=== PATIENT | female | born 1960 | race Hispanic/Latino ===

== ENCOUNTER → 2018-11-03 | Day surgery (SDC) | payer BC ==
[~2018-11-03] MED LIST: ASPIR 8181 MG PO; BUPROPION XL150 MG PO; FENTANYL CITRATE/PF 100MCG/2 ML INJ ONE; GARLIC PO; HUMALOG100 UNIT/3 SC; INSULIN REGULAR, HUMAN 100 UNIT/1 ML 3ML VIAL ONE; INVOKANA PO; LANSOPRAZOLE15 MG PO; LANTUS SQ; LIDOCAINE HCL 2% LOCAL INJ 5 ML SDV VIAL INJ ONE; LISINOPRIL10 MG PO; LORTAB 10-5001 EACH PO; METFORMIN HCL500 MG PO; METOCLOPRAMIDE HCL 10 MG/2ML VIAL ONE; MIDAZOLAM HCL 2 MG/2 ML VIAL ONE; ONDANSETRON HCL INJ 2MG/ML 2ML 2 MG/ML VIAL ONE; PANTOPRAZOLE 40 MG 10ML VIAL ONE; PRAVASTATIN SOD40 MG PO; PROPOFOL IV EMULSION 10 MG/ML 50 ML VIAL ONE; SPIRONOLACTONE25 MG PO; SYNTHROID88 MCG PO; VICTOZA PO; VIT D PO; WELLBUTRIN SR150 MG PO; XULTOPHY SC
--- NOTE | 2018-11-03 23:24 | Operative Report ---
DATE OF PROCEDURE: 11/03/2018 SURGEON: Regino Lopez MD PROCEDURE: EGD with biopsies. INDICATIONS FOR PROCEDURE: Upper abdominal pain. MEDICATION: The patient was done under MAC, please see anesthesiologist's note. PROCEDURE IN DETAIL: With the patient in left lateral decubitus position, a flexible fiberoptic Olympus gastroscope was introduced into the esophagus under direct visualization without any difficulty. There was some patchy erythema noted in distal esophagus. Minute tongues of velvety red mucosa were noted to extend proximally from the GE junction and biopsies were obtained to rule out Jimenez's. The scope was then advanced with ease into the stomach traversing a small sliding hiatal hernia. Mucosa overlying the antrum and the body revealed some patchy erythema and low-grade edema, and biopsies were obtained and sent to stain for H pylori. The pylorus was of normal contour and shape. It was intubated with ease and the scope was advanced all the way to the second portion of the duodenum. Biopsies were obtained from the proximal second portion and the duodenal bulb to rule out sprue. The scope was then withdrawn back into the stomach and retroflexed. Mucosa overlying the fundus and the cardia appeared to be within normal limits. The scope was then straightened out and was subsequently withdrawn. The patient tolerated the procedure well. IMPRESSION: 1. Mild distal esophagitis. 2. Rule out Jimenez esophagus. 3. Small sliding hiatal hernia. 4. Gastritis, biopsied. Biopsies were sent to stain for Helicobacter pylori. 5. Rule out sprue. PLAN: Follow up histology. Initiate Dexilant 60 mg 1 p.o. q.a.m. before meals. Regino Lopez MD [facility] /[id number] cc: Willem Wheatley MD
--- OUTSIDE RECORDS SUMMARY | 2018-11-05 11:00 | XMS REPORT ---
Author [facility] Address Unknown Phone Unavailable Care Team Providers Care Finish Sander Name Role Phone Unavailable Unavailable Payers Payer Name Policy Type Policy Number Effective Date Expiration Date Problems This patient has no known problems. Allergies, Adverse Reactions, Alerts Allergy Name Allergy Type Status Severity Reaction(s) Onset Date Inactive Date Treating Clinician Comments banana DA Active [place] 2018-09-22 00:00:00 avocado DA Active [place] 2018-09-22 00:00:00 orange flavor DA Active [place] 2018-09-22 00:00:00 banana DA Active TN 2013-05-27 00:00:00 avocado DA Active TN 2013-05-27 00:00:00 orange flavor DA Active [place] 2013-05-27 00:00:00 Medications This patient has no known medications. Results Test Description Test Time Test Comments Text Results Atomic Results Result Comments - XR SHOULDER 2 + V LT 2018-10-15 16:40:00 FAX: Dakota Everett MD [phone] [place]: [address] St: PRE FAX: Willem Garza MD [phone] Name: JACLYN FELDMAN [facility] : 1960 Age/S: 58/F [address] Unit #: [id number] Loc: [place] [address] Phys: Dakota Everett MD Acct: [id number] Dis Date: Status: PRE ER PHONE #: [phone] Exam Date: 10/15/2018 1630 FAX #: [phone] Reason: SHOULDER PAIN EXAMS: CPT CODE: [id number] XR SHOULDER 2 + [place] LT [id number] REASON FOR EXAM: ARM PAIN EXAM ORDER DATE: 10/15/2018 4:13 PM Ordering M.DGiovany: Dakota Everett MD PROCEDURE: - XR HUMERUS 2 + V LT, - XR SHOULDER 2 + V LT FINDINGS: 5 views of the left humerus and shoulder were obtained. A comminuted fracture of the left proximal humerus noted. There is normal alignment of the humeral head to the glenoid fossa. The acromioclavicular joint is intact IMPRESSION: Minimally displaced comminuted fracture of the surgical neck of the left humerus at 1640 Reported and signed by: Zachariah Melo M.D. CC: Dakota Everett MD; Willem Wheatley Technologist: RT Castro(R; ... Trnscrd Date/Time/By: 10/15/2018 (1640) : By: AndresL Orig Print D/T: S: 10/15/2018 (3049) PAGE 1 Signed Report - XR HUMERUS 2 + V LT 2018-10-15 16:40:00 FAX: Dakota Everett MD [phone] [place]: B St: PRE FAX: Willem Garza MD [phone] Name: JACLYN FELDMAN [facility] : 1960 Age/S: 58/F [address] [facility] Unit #: [id number] Loc: [place] [address] Phys: Dakota Everett MD Acct: [id number] Dis Date: Status: PRE ER PHONE #: [phone] Exam Date: 10/15/2018 1630 FAX #: [phone] Reason: ARM PAIN EXAMS: CPT CODE: [id number] XR HUMERUS 2 + [place] [id number] REASON FOR EXAM: ARM PAIN EXAM ORDER DATE: 10/15/2018 4:13 PM Ordering M.DGiovany: Dakota Everett MD PROCEDURE: - XR HUMERUS 2 + V LT, - XR SHOULDER 2 + V LT FINDINGS: 5 views of the left humerus and shoulder were obtained. A comminuted fracture of the left proximal humerus noted. There is normal alignment of the humeral head to the glenoid fossa. The acromioclavicular joint is intact IMPRESSION: Minimally displaced comminuted fracture of the surgical neck of the left humerus at 1640 Reported and signed by: Zachariah Melo M.D. CC: Dakota Everett MD; Willem Wheatley Technologist: LAWANDA ErazoR; ... Trnscrd Date/Time/By: 10/15/2018 (1640) : By: AndresL Orig Print D/T: S: 10/15/2018 (3669) PAGE 1 Signed Report BREAST ULTRASOUND CORE BIOPSY RIGHT 2018-10-01 15:35:45 - BREAST ULTRASOUND CORE BIOPSY RIGHTULTRASOUND GUIDED BIOPSY RIGHT BREAST WITH MARKING DEVICE INSERTED: 09/27/2018CLINICAL: Ultrasound biopsy, right breast. Comparison is made to exams dated 09/11/2018 ultrasound, 08/17/2018 mammogram, 09/10/2008 ultrasound, and 09/10/2008 mammogram - [facility]-. An ultrasound guided biopsy using real-time ultrasound was performed for the circumscribed o mckay mass located in the right breast at 1 o'clock, posterior depth. This was described on the previous mammography and ultrasound reports. The skin was prepped in the usual manner. Local anesthetic was administered to the access site. The abnormality was approached from the medial aspect. A biopsy needle was placed adjacent to the abnormality under ultrasound guidance. Once the needle was documented to be in the correct location, a specimen was obtained using a BARD biopsy device. A clip was inserted into the biopsy cavity. The specimen was sent to the laboratory for pathological analysis. IMPRESSION: ULTRASOUND GUIDED BIOPSYUltrasound guided biopsy of the mass in the right breast at 1 o'clock, posterior depth, was successful with no apparent post procedure complications. Waiting for pathology results. A final report will be issued when these become available. FINAL PATHOLOGY:Fibroadenoma.RECOMMENDATION:Benign biopsy, concordant. Normal interval follow-up in 1 year is recommended for screening mammography.Cuco Lyons M.D. ss/:10/01/2018 15:35:45 Supervisor [employer]: Cris BELL, [facility]-FWletter sent: Benign Biopsy DIAG MAMM RIGHT CAD DIGITAL 2018-09-27 09:39:45 - DIAG MAMM RIGHT CAD DIGITALUNILATERAL RIGHT DIGITAL DIAGNOSTIC MAMMOGRAM WITH CAD POST-PROCEDURE IMAGING FOR MARKER PLACEMENT: 09/27/2018CLINICAL: Post clip placement. Current mammographic images were evaluated by either a [employer]-Vu or a Kontroncker CAD (computer aided detection system). Comparison is made to exams dated 08/17/2018 mammogram and 09/10/2008 mammogram - [facility]. The tissue of the right breast is heterogenously dense, which lowers the sensitivity of mammography. Procedure mammogram demonstrates biopsy marker clip within the biopsied right breast mass at 1 o'clock, 8 cm from the nipple.IMPRESSION: POST PROCEDURE IMAGING FOR MARKER PLACEMENTSuccesful biopsy marker placement within the biopsied right breast mass.Cuco Lyons M.D. ss/:09/27/2018 09:39:45 Supervisor [employer]: Janae BELL, [facility]- FWMammogram BI-RADS: Post-procedure mammogram for marker placement GLUBED 2018-09-23 11:37:00 GLUBED (test code=GLUBED) 244 mg/dL 74-106 Performed by certified resizer operator at [facility] [id number] 07:37:00* Test Item Value Reference Range Comments GLUBED (test code=GLUBED) 184 mg/dL 74-106 Performed by certified resizer operator at [facility] BASIC METABOLIC [id number] 05:20:00* Test Item Value Reference Range Comments SODIUM (test code=NA) 139 mmol/L 136-145 POTASSIUM (test code=K) 3.6 mmol/L 3.5-5.1 CHLORIDE (test code=CL) 104.0 mmol/L 98-107 CARBON DIOXIDE (test code=CO2) 28.0 mmol/L 21-32 ANION GAP (test code=GAP) 10.6 10-20 GLUCOSE (test code=GLU) 222 mg/dL 74-106 BLOOD UREA NITROGEN (test code=BUN) 20 mg/dL 7-18 GLOMERULAR FILTRATION RATE (test code=GFR) > 60 mL/min >=60 Estimated GFR by using Modified MDRD formula.Chronic kidney disease is defined as either kidney damageor GFR <60 mL/min/1.73 m2 for >3 months. CREATININE (test code=CREAT) 0.50 mg/dL 0.55-1.02 Note change in reference range due to change in reagent. BUN/CREATININE RATIO (test code=BUN/CREA) 37.1 10-20 CALCIUM (test code=CA) 8.5 mg/dL 8.5-10.1 LIPID PROFILE (CORONARY RISK)2018-09-23 05:20:00* Test Item Value Reference Range Comments TRIGLYCERIDES (test code=TRIG) 238 mg/dL 20-150 CHOLESTEROL (test code=CHOL) 172 mg/dL 0-200 CHOLESTEROL/HDL RATIO (test code=CHOLHDL) 4.0 RATIO 0-4.9 RISK ASSOCIATED WITH CHOL/HDL RATIOS: Risk Male Female1/2 AVERAGE 3.43 3.27AVERAGE 4.97 4.442X AVERAGE 9.55 7.053X AVERAGE 23.39 11.04 REFERENCE VALUE IS RELATED TO RISK LEVELS ASRECOMMENDED BY THE ROSAR[facility]. HEART, LUNG, AND BLOOD INST. HDL CHOLESTEROL (test code=HDL) 37 mg/dL 40-60 LIPOPROTEIN LDL (test code=LDL) 109 mg/dL 100-129 RN PERSONNEL, CONTACT PHYSICIAN IMMEDIATELY IF THIS IS A STROKE, AMI OR CAROTID STENOSIS PATIENT WHEN THE LDL >100 (1ST OCCURENCE, THIS ADMISSION) Reference Interval: mg/dL mmol/L Optimal <100 <2.6Near/above optimal 100-129 2.6- 3.3Borderline High 130-159 3.4-4.1High 160-189 4.1-4.9Very High >=190 >=4.9=========This LDL result is a direct measurement.========= [id number] 05:20:00* Test Item Value Reference Range Comments MAGNESIUM (test code=MAG) 2.1 mg/dL 1.8-2.4 [id number] 05:17:00* Test Item Value Reference Range Comments GLYCOSYLATED HEMOGLOBIN (HA1C) (test code=GLYHGB) 11.1 % HbA1 4.8-6.0 ESTIMATED AVERAGE GLUCOSE (test code=EAG) 272 MG/DL BASIC METABOLIC [id number] 05:13:00* Test Item Value Reference Range Comments SODIUM (test code=NA) 139 mmol/L 136-145 POTASSIUM (test code=K) 3.6 mmol/L 3.5-5.1 CHLORIDE (test code=CL) 104.0 mmol/L 98-107 CARBON DIOXIDE (test code=CO2) mmol/L 21-32 ANION GAP (test code=GAP) 10-20 GLUCOSE (test code=GLU) mg/dL 74-106 BLOOD UREA NITROGEN (test code=BUN) mg/dL 7-18 GLOMERULAR FILTRATION RATE (test code=GFR) mL/min >=60 CREATININE (test code=CREAT) mg/dL 0.55-1.02 BUN/CREATININE RATIO (test code=BUN/CREA) 10-20 CALCIUM (test code=CA) mg/dL 8.5-10.1 LIPID PROFILE (CORONARY RISK)2018-09-23 05:13:00* Test Item Value Reference Range Comments TRIGLYCERIDES (test code=TRIG) mg/dL 20-150 CHOLESTEROL (test code=CHOL) mg/dL 0-200 CHOLESTEROL/HDL RATIO (test code=CHOLHDL) RATIO 0-4.9 HDL CHOLESTEROL (test code=HDL) mg/dL 40-60 LIPOPROTEIN LDL (test code=LDL) mg/dL 100-129 [id number] 05:13:00* Test Item Value Reference Range Comments MAGNESIUM (test code=MAG) mg/dL 1.8-2.4 CBC W/AUTO [id number] 04:51:00* Test Item Value Reference Range Comments WHITE BLOOD CELL (test code=WBC) 8.0 K/mm3 4.5-12.5 RED BLOOD CELL (test code=RBC) 4.19 mill/mm3 3.7-5.2 HEMOGLOBIN (test code=HGB) 12.4 gram/dL 11.5-15.5 HEMATOCRIT (test code=HCT) 38.5 % 36.0-46.0 MEAN CELL VOLUME (test code=MCV) 91.9 fL 80-98 MEAN CELL HGB (test code=MCH) 29.6 picogram 27.0-33.0 MEAN CELL HGB CONCETRATION (test code=MCHC) 32.2 gram/dL 33.0-36.0 RED CELL DISTRIBUTION WIDTH (test code=RDW) 11.9 % 11.6-16.2 RED CELL DISTRIBUTION WIDTH SD (test code=RDW-SD) 40.0 fL 37.0-51.0 PLATELET COUNT (test code=PLT) 223 K/mm3 150-450 MEAN PLATELET VOLUME (test code=MPV) 11.4 fL 6.7-11.0 NEUTROPHIL % (test code=NT%) 51.4 % 39.0-69.0 IMMATURE GRANULOCYTE % (test code=IG%) 0.4 % 0.0-5.0 LYMPHOCYTE % (test code=LY%) 36.9 % 25.0-55.0 MONOCYTE % (test code=MO%) 7.5 % 0.0-10.0 EOSINOPHIL % (test code=EO%) 3.4 % 0.0-5.0 BASOPHIL % (test code=BA%) 0.4 % 0.0-1.0 NUCLEATED RBC % (test code=NRBC%) 0.0 % 0-0 NEUTROPHIL # (test code=NT#) 4.10 K/mm3 1.8-7.7 IMMATURE GRANULOCYTE # (test code=IG#) 0.03 x10 3/uL 0-0.03 LYMPHOCYTE # (test code=LY#) 2.94 K/mm3 1.0-5.0 MONOCYTE # (test code=MO#) 0.60 K/mm3 0-0.8 EOSINOPHIL # (test code=EO#) 0.27 K/mm3 0.0-0.5 BASOPHIL # (test code=BA#) 0.03 K/mm3 0.0-0.2 NUCLEATED RBC # (test code=NRBC#) 0.00 K/mm3 0.0-0.1 [id number] 02:11:00* Test Item Value Reference Range Comments TROPONIN-I (test code=TROPI) <0.015 ng/mL 0-0.045 COMMENTS TO HOME SERVICE ADVISOR: COLLECT 3 HOURS AFTER PREVIOUS [id number] 23:21:00* Test Item Value Reference Range Comments TROPONIN-I (test code=TROPI) <0.015 ng/mL 0-0.045 COMMENTS TO HOME SERVICE ADVISOR: COLLECT 3 HOURS AFTER PREVIOUS [id number] 20:10:00* Test Item Value Reference Range Comments GLUBED (test code=GLUBED) 195 mg/dL 74-106 Performed by certified resizer operator at [facility] HEPATIC FUNCTION [id number] 16:05:00* Test Item Value Reference Range Comments TOTAL PROTEIN (test code=PROT) 7.5 gram/dL 6.4-8.2 ALBUMIN (test code=ALB) 3.6 g/dL 3.4-5.0 GLOBULIN (test code=GLOB) 3.9 gram/dL 2.7-4.2 ALBUMIN/GLOBULIN RATIO (test code=A/G) 0.9 0.75-1.50 BILIRUBIN TOTAL (test code=BILT) 0.30 mg/dL 0.0-1.0 BILIRUBIN DIRECT (test code=BILD) 0.07 mg/dL 0.0-0.20 SGOT/AST (test code=AST) 42 IUnit/L 15-37 SGPT/ALT (test code=ALT) 62 IUnit/L 12-78 ALKALINE PHOSPHATASE TOTAL (test code=ALKP) 145 IUnit/L 45-117 Note change in reference range due to change in reagent. [id number] 16:05:00* Test Item Value Reference Range Comments LIPASE (test code=LIP) 220 U/L 73.0-393.0 BASIC METABOLIC [id number] 16:05:00* Test Item Value Reference Range Comments SODIUM (test code=NA) 138 mmol/L 136-145 POTASSIUM (test code=K) 4.1 mmol/L 3.5-5.1 CHLORIDE (test code=CL) 103.0 mmol/L 98-107 CARBON DIOXIDE (test code=CO2) 28.0 mmol/L 21-32 ANION GAP (test code=GAP) 11.1 10-20 GLUCOSE (test code=GLU) 173 mg/dL 74-106 BLOOD UREA NITROGEN (test code=BUN) 15 mg/dL 7-18 GLOMERULAR FILTRATION RATE (test code=GFR) > 60 mL/min >=60 Estimated GFR by using Modified MDRD formula.Chronic kidney disease is defined as either kidney damageor GFR <60 mL/min/1.73 m2 for >3 months. CREATININE (test code=CREAT) 0.50 mg/dL 0.55-1.02 Note change in reference range due to change in reagent. BUN/CREATININE RATIO (test code=BUN/CREA) 29.9 10-20 CALCIUM (test code=CA) 8.8 mg/dL 8.5-10.1 [id number] 16:05:00* Test Item Value Reference Range Comments TROPONIN-I (test code=TROPI) <0.015 ng/mL 0-0.045 CBC W/O [id number] 15:58:00* Test Item Value Reference Range Comments WHITE BLOOD CELL (test code=WBC) 8.3 K/mm3 4.5-12.5 RED BLOOD CELL (test code=RBC) 4.56 mill/mm3 3.7-5.2 HEMOGLOBIN (test code=HGB) 13.4 gram/dL 11.5-15.5 HEMATOCRIT (test code=HCT) 41.2 % 36.0-46.0 MEAN CELL VOLUME (test code=MCV) 90.4 fL 80-98 MEAN CELL HGB (test code=MCH) 29.4 picogram 27.0-33.0 MEAN CELL HGB CONCETRATION (test code=MCHC) 32.5 gram/dL 33.0-36.0 RED CELL DISTRIBUTION WIDTH (test code=RDW) 11.9 % 11.6-16.2 PLATELET COUNT (test code=PLT) 243 K/mm3 150-450 MEAN PLATELET VOLUME (test code=MPV) 11.0 fL 6.7-11.0 CBC W/O [id number] 15:57:00* Test Item Value Reference Range Comments WHITE BLOOD CELL (test code=WBC) K/mm3 4.5-12.5 RED BLOOD CELL (test code=RBC) mill/mm3 3.7-5.2 HEMOGLOBIN (test code=HGB) 13.4 gram/dL 11.5-15.5 HEMATOCRIT (test code=HCT) 41.2 % 36.0-46.0 MEAN CELL VOLUME (test code=MCV) fL 80-98 MEAN CELL HGB (test code=MCH) picogram 27.0-33.0 MEAN CELL HGB CONCETRATION (test code=MCHC) gram/dL 33.0-36.0 RED CELL DISTRIBUTION WIDTH (test code=RDW) % 11.6-16.2 PLATELET COUNT (test code=PLT) K/mm3 150-450 MEAN PLATELET VOLUME (test code=MPV) fL 6.7-11.0 BASIC METABOLIC [id number] 15:55:00* Test Item Value Reference Range Comments SODIUM (test code=NA) 138 mmol/L 136-145 POTASSIUM (test code=K) 4.1 mmol/L 3.5-5.1 CHLORIDE (test code=CL) 103.0 mmol/L 98-107 CARBON DIOXIDE (test code=CO2) mmol/L 21-32 ANION GAP (test code=GAP) 10-20 GLUCOSE (test code=GLU) mg/dL 74-106 BLOOD UREA NITROGEN (test code=BUN) mg/dL 7-18 GLOMERULAR FILTRATION RATE (test code=GFR) mL/min >=60 CREATININE (test code=CREAT) mg/dL 0.55-1.02 BUN/CREATININE RATIO (test code=BUN/CREA) 10-20 CALCIUM (test code=CA) mg/dL 8.5-10.1 [id number] 15:55:00* Test Item Value Reference Range Comments TROPONIN-I (test code=TROPI) ng/mL 0-0.045 TROPONIN I [id number] 15:50:00* Test Item Value Reference Range Comments TROPONIN I RAPID (test code=TROPIRAP) 0.00 ng/mL <0.08 Please Note New Reference Range 0.00-0.079 ng/mL - Negative>or=0.08 ng/mL - Positive The use of serial sampling and testing protocol is arecommended practice.An elevated troponin level alone is often not sufficient fordiagnosis of myocardial infarction. Troponin results obtained by different assays may vary.Evaluation of the extent of myocardial damage based onincrease of troponin would be valid only if similarmethodology is used. - XR CHEST 1 [id number] 14:40:00 FAX: Willem Garza MD [phone] [place]: St: REG FAX: Rajiv Frausto DO Name: JACLYN FELDMAN [facility] : 1960 Age/S: 58/F [address] [facility] Unit #: [id number] Loc: [place] [address] Phys: Rajiv Frausto DO Acct: [id number] Dis Date: Status: REG ER PHONE #: [phone] Exam Date: 09/22/2018 1428 FAX #: [phone] Reason: CHEST PAIN EXAMS: CPT CODE: [id number] XR CHEST 1 V [id number] REASON FOR EXAM: CHEST PAIN Exam Order Date: 09/22/2018 2:02 PM Ordering MKristopher: Rajiv Frausto DO PROCEDURE: - XR CHEST 1 V COMPARISON: None FINDINGS: There is an opacity in the periphery of the left lung base. The remainder of the lungs are clear. Cardiomediastinal silhouette is normal in size for technique. Pulmonary vasculature is within normal limits Incompletely visualized hardware is present in the cervical spine. Visualized upper abdomen is grossly unremarkable. IMPRESSION: The lungs are clear other than an opacity in the periphery of the left lung base. This opacity may represent overlapping soft tissues, atelectatic changes, or a consolidation. Please correlate with physical exam. at 1440 Reported and signed by: Ovidio Hernández MD CC: Willem Wheatley; Rajiv Frausto DO Technologist: YOBANY MUHAMMAD RT Trninrd Date/Time/By: 09/22/2018 (6260) : By: BaironRR31 Orig Print D/T: S: 09/22/2018 (5202) PAGE 1 Signed Report BREAST ULTRASOUND [id number] 14:41:15- BREAST ULTRASOUND BILATERALULTRASOUND OF BOTH BREASTS: 09/11/2018CLINICAL: Supplemental Screening for Dense Breast. Comparison is made to exam dated 08/17/2018 mammogram - [facility]. Ultrasound of both breasts was performed. Castro scale images of the real- time examination were reviewed. Ultrasound of the right breast demonstrates oval mass with circumscribed margins, measuring 14 x 7 x 11 mm, at the site of mammographic mass at 1 o'clock, at distance of 8 cm from nipple.No abnormalities were seen sonographically in the left breast. IMPRESSION: SUSPICIOUS OF MALIGNANCY - FOLLOW-UP RECOMMENDEDRIGHT BREAST solid mass measuring 14 mm on ultrasound at 1 o'clock, 8 cm from nipple. BI-RADS Category 4A. Ultrasound guided core biopsy is recommended at this time. The results were reviewed with the patient. Colten Chavez M.D. qn/:09/11/2018 14:41:15 [employer]: Cris Spain FW, [facility]-FWletter sent: BIRADS 4/5 Biopsy Ultrasound BI-RADS: 4a Suspicious abnormality - low suspicion for malignancySCR MAMM BILATERAL ALVAREZ CAD [id number] 16:23:55 - SCR MAMM BILATERAL ALVAREZ CAD DIGITALBILATERAL DIGITAL SCREENING MAMMOGRAM 3D/2D WITH CAD: 08/17/2018CLINICAL: Asymptomatic. Digital breast tomosynthesis was performed in addition to routine CC and MLO views. Current mammographic images were evaluated by either a [employer] M-Vu or a [employer] ImageChecker CAD (computer aided detection system). Comparison is made to exam dated 09/10/2008 mammogram - [facility]- . The tissue of both breasts is extremely dense, which lowers the sensitivity of mammography. There are benign-appearing scattered calcifications in both breasts. There also is a benign-appearing mass in the posteromedial right breast 9-10 cm from the nipple. No suspicious architectural distortion, malignant type calcification, or lymph node abnormality detected. IMPRESSION: INCOMPLETE ASSESSMENT: ADDITIONAL IMAGING EVALUATION RECOMMENDEDNo significant new finding in the left breast is noted.Sonography is recommended for further evaluation of the right breast mass.Aaron Tierney M.D. rb/:08/23/2018 16:23:55 Supervisor [employer]: Selin BELL, [facility]-letter sent: Additional Imaging Mammogram BI-RADS: 0 IndeterminateBONE DENSITY 2018-08-21 08:36:26 - BONE DENSITY BONE DENSITY EVALUATION: 08/17/2018Current bone density exam performed using the Prezma DXA System (analysis version: 13.60) manufactured by [employer].CLINICAL DATA: The patient does not take Calcium supplements. The patient does not exercise. RISK FACTORS: In the medical history it is stated: She went through menopause at age 46. She has never taken estrogen replacement therapy. The patient does not smoke. The patient does not drink alcohol. The patient's caffeine intake is moderate. FINDINGS: Bone density evaluation was performed 08/17/2018 on the dual femur. The BMD average for the exam is 0.920 g/cm2. The T-score is -0.70. These values indicate 91.0% of bone mineralization for young normals. This matches the World Health Organization's criteria for normal bone density and places the patient within normal limits of fracture risk. An additional bone density evaluation was performed 08/17/2018 on the left femur neck. The T-score is - 1.80. These values indicate 76.0% of bone mineralization for young normals. This matches the World Health Organization's criteria for osteopenia and places the patient at a medium risk for fracture. An additional bone density evaluation was performed 08/17/2018 on the AP L1 region of spine. The T-score is -3.00. These values indicate 68.0% of bone mineralization for young normals. This matches the World Health Organization's criteria for osteoporosis and places the patient at a high risk for fracture. An additional bone density evaluation was performed 08/17/2018 on the AP L1-L4 region of spine. The BMD average for the exam is 0.937 g/cm2. The T-score is -2.10. These values indicate 79.0% of bone mineralization for young normals. This matches the World Health Organization's criteria for osteopenia and places the patient at a medium risk for fracture. IMPRESSION: OSTEOPOROSISPatient is at high risk for fractu re. I recommend 1200 mgs of calcium per day and 8961-8439 i.u. of Vitamin D pe r day if there are no contraindications. The calcium should be taken in divided doses throughout the day, 500-600 mgs per dose, to increase absorption. The pat ient should be encouraged, if possible, to initiate a weight bearing exercise pr ogram such as walking 60 minutes a day at least 5 days a week. Walking triggers uptake of the calcium into the bone from the bloodstream. If the patient has salazar ited mobility, however walking in place and shifting weight is helpful in preven ting bone loss. NOF Guide recommends that FDA-approved medical therapies be cons idered in postmenopausal women and men age >50 years with: Hip or vertebral fracture or T-score of < or=-2.5 at the hip or spine. A follow-up bone density study in 1 year is recommended. Magali bustamante/tin:08/21/2018 08:36:26 Supervisor [employer]: Gladys BELL, [facility]
== END | disposition home or self-care (01) ==
LOC: OR 10:27
PROVIDERS: ATTEND Internal Medicine Gastroenterology
DX: K21.0 Gastro-esophageal reflux disease with esophagitis (principal); K44.9 Diaphragmatic hernia without obstruction or gangrene; K29.70 Gastritis, unspecified, without bleeding; E11.9 Type 2 diabetes mellitus without complications; F41.9 Anxiety disorder, unspecified; E03.9 Hypothyroidism, unspecified
CPT/HCPCS: 36415; 43239; 82948; C9113; J2001; J2250; J2405; J2704; J2765

== ENCOUNTER 2018-12-17 20:46 | Emergency (ER) | payer BC ==
[~2018-12-17] VITALS: Ht 170.2 cm; Wt 81.6 kg
[~2018-12-17 20:46] MED LIST changes: -FENTANYL CITRATE/PF 100MCG/2 ML INJ ONE; -INSULIN REGULAR, HUMAN 100 UNIT/1 ML 3ML VIAL ONE; -LIDOCAINE HCL 2% LOCAL INJ 5 ML SDV VIAL INJ ONE; -METOCLOPRAMIDE HCL 10 MG/2ML VIAL ONE; -MIDAZOLAM HCL 2 MG/2 ML VIAL ONE; -ONDANSETRON HCL INJ 2MG/ML 2ML 2 MG/ML VIAL ONE; -PANTOPRAZOLE 40 MG 10ML VIAL ONE; -PROPOFOL IV EMULSION 10 MG/ML 50 ML VIAL ONE
[2018-12-17] MEDS ORDERED: ONDANSETRON HCL INJ 2MG/ML 2ML 2 MG/ML VIAL IV ONE (21:22)
[2018-12-17] MEDS ORDERED: DICYCLOMINE HCL 20 MG/2 ML VIAL IM ONE (21:30)
[2018-12-17 21:50] LABS: BASOPHILS % 0.4 % (0.0-1.0); EOSINOPHILS # (AUTO) 0.3 (0.0-0.4); EOSINOPHILS % 3.7 % (0.0-6.0); HEMATOCRIT 39.8 % (34.2-44.1); LYMPHOCYTES # (AUTO) 2.7 (1.0-3.2); LYMPHOCYTES % 32.1 % (18.0-39.1); MEAN CORPUSCULAR HEMOGLOBIN 30.3 pg (28-32); MEAN CORPUSCULAR HGB CONC 35.2 g/dL (31-35); MEAN CORPUSCULAR VOLUME 86.1 fL (81-99); MONOCYTES # (AUTO) 0.6 (0.2-0.8); MONOCYTES % 6.7 % (4.4-11.3); NEUTROPHILS # (AUTO) 4.8 (2.1-6.9); PLATELET COUNT 258 x10e3/uL (140-360); RED BLOOD COUNT 4.62 x10e6/uL (3.6-5.1); RED CELL DISTRIBUTION WIDTH 11.5 % (11.7-14.4)
[2018-12-17 22:02] LABS: CLARITY,URINE CLEAR (CLEAR); COLOR,URINE YELLOW (YELLOW)
[2018-12-17 22:03] LABS: KETONES,URINE NEGATIVE (NEGATIVE); LEUKOCYTE ESTERASE ,URINE NEGATIVE (NEGATIVE); NITRITE,URINE NEGATIVE (NEGATIVE); PROTEIN,URINE DIPSTICK NEGATIVE (NEGATIVE); URINE UROBILINOGEN 0.2 mg/dL (0.2 - 1)
[2018-12-17 22:04] LABS: BACTERIA,URINE MODERATE /HPF; BILIRUBIN,URINE NEGATIVE (NEGATIVE); EPITHELIAL CELLS,URINE FEW /LPF; RBC,URINE 0-5 /HPF (0-5); WBC,URINE (MAN) >50 /HPF (0-5)
[2018-12-17 22:30] LABS: ALANINE AMINOTRANSFERASE 78 IU/L (0-55); ALBUMIN 3.6 g/dL (3.5-5.0); ALBUMIN/GLOBULIN RATIO 1.1 (0.8-2.0); ALKALINE PHOSPHATASE 144 IU/L (40-150); AMYLASE 28 U/L (25-125); ANION GAP 11.8 mmol/L (8-16); BLOOD UREA NITROGEN 14 mg/dL (7-26); BUN/CREATININE RATIO 20 (6-25); CALCIUM 9.7 mg/dL (8.4-10.2); CARBON DIOXIDE 28 mmol/L (22-29); CHLORIDE 98 mmol/L (98-107); EST GLOMERULAR FILTRATION RATE > 60 ML/MIN (60-); GLUCOSE 340 mg/dL (74-118); LIPASE 54 U/L (8-78); POTASSIUM 3.8 mmol/L (3.5-5.1); SODIUM 134 mmol/L (136-145)
--- NOTE | 2018-12-17 23:19 | Diagnostic Imaging Report ---
EXAMINATION: CT of the abdomen and pelvis with contrast. TECHNIQUE: Spiral CT images of the abdomen and pelvis were performed from the lung bases to the lesser trochanters after the intravenous administration of 100 cc of Omnipaque 300 and the oral administration of none. Coronal and sagittal reformatted images were obtained.Dose modulation, iterative reconstruction, and/or weight based adjustment of the mA/kV was utilized to reduce the radiation dose to as low as reasonably achievable. COMPARISON: None. CLINICAL HISTORY:Pain, DISCUSSION: ABDOMEN/PELVIS: LOWER THORAX:Unremarkable. HEPATOBILIARY: No focal hepatic lesions. No intra-or extrahepatic biliary ductal dilation. Cholecystectomy. SPLEEN: No splenomegaly. PANCREAS: No focal masses or ductal dilatation. ADRENALS: No adrenal nodules. KIDNEYS/URETERS: 2 cm hypodense lesion in the left kidney measures approximately. PELVIC ORGANS/BLADDER: The bladder is normal. Hysterectomy. PERITONEUM/RETROPERITONEUM: No free air or fluid. LYMPH NODES: No intra-abdominal, retroperitoneal, pelvic or inguinal lymphadenopathy. VESSELS: Vascular calcifications. GI TRACT: No distention or wall thickening. Appendix normal. BONES AND SOFT TISSUE: No bony destructive lesions. No soft tissue abnormalities. IMPRESSION: No acute CT finding Signed by: Dr. Michael Sebastian M.D. on 12/17/2018 11:15 PM
[2018-12-18 00:24] VITALS: BP 128/74
[2018-12-18] MEDS ORDERED: SODIUM CHLORIDE 0.9% 50ML 50 ML ONE (01:12)
[2018-12-18] MEDS ORDERED: IOPAMIDOL 370 MG/ML 200 ML INFUS..BTL INJ ONE (01:12)
== END 2018-12-18 00:36 | disposition home or self-care (01) ==
LOC: ER 20:46
DX: R10.33 Periumbilical pain (principal); N30.90 Cystitis, unspecified without hematuria; E11.9 Type 2 diabetes mellitus without complications; F41.9 Anxiety disorder, unspecified; E78.5 Hyperlipidemia, unspecified
CPT/HCPCS: 36415; 74177; 80053; 81001; 82150; 83690; 85025; 99284; J0500; J2405; Q9967

== ENCOUNTER 2018-12-26 12:48 | Emergency (ER) | payer BC ==
[~2018-12-26] VITALS: Ht 170.2 cm; Wt 81.6 kg
--- NOTE | 2018-12-26 13:26 | NUR ---
Note kimberlicarrie in ED - 12/26/18 at 1339 by COURTNEY PATIENT YELLING AND CURSING AT STAFF, REQUESTING TO LEAVE AGAINST MEDICAL ADVICE, EDUCATED PATIENT ON THE RISKS OF LEAVING AGAINST MEDICAL ADVICE. SIGNED OUT AGAINST MEDICAL ADVICE AND AMBULATORY OUT IF THE DEPARTMENT. PATIENT REFUSED PHYSICAL EXAM BY DR CALDERON.
[2018-12-26 14:53] LABS: BASOPHILS % 0.4 % (0.0-1.0); EOSINOPHILS # (AUTO) 0.2 (0.0-0.4); EOSINOPHILS % 2.2 % (0.0-6.0); HEMATOCRIT 42.2 % (34.2-44.1); HEMOGLOBIN 14.7 g/dL (12.0-16.0); LYMPHOCYTES # (AUTO) 2.5 (1.0-3.2); LYMPHOCYTES % 24.7 % (18.0-39.1); MEAN CORPUSCULAR HEMOGLOBIN 30.1 pg (28-32); MEAN CORPUSCULAR HGB CONC 34.8 g/dL (31-35); MEAN CORPUSCULAR VOLUME 86.5 fL (81-99); MONOCYTES # (AUTO) 0.6 (0.2-0.8); MONOCYTES % 6.3 % (4.4-11.3); NEUTROPHILS # (AUTO) 6.6 (2.1-6.9); NEUTROPHILS % 65.9 % (38.7-80.0); PLATELET COUNT 277 x10e3/uL (140-360); RED BLOOD COUNT 4.88 x10e6/uL (3.6-5.1); RED CELL DISTRIBUTION WIDTH 11.7 % (11.7-14.4)
[2018-12-26 14:59] LABS: BILIRUBIN,URINE NEGATIVE (NEGATIVE); CLARITY,URINE SL CLOUDY (CLEAR); COLOR,URINE YELLOW (YELLOW); KETONES,URINE NEGATIVE (NEGATIVE); LEUKOCYTE ESTERASE ,URINE NEGATIVE (NEGATIVE); NITRITE,URINE NEGATIVE (NEGATIVE); PROTEIN,URINE DIPSTICK NEGATIVE (NEGATIVE); URINE UROBILINOGEN 0.2 mg/dL (0.2 - 1)
[2018-12-26 15:11] LABS: ALANINE AMINOTRANSFERASE 71 IU/L (0-55); ALBUMIN/GLOBULIN RATIO 1.1 (0.8-2.0); ALKALINE PHOSPHATASE 136 IU/L (40-150); ANION GAP 14.9 mmol/L (8-16); BLOOD UREA NITROGEN 17 mg/dL (7-26); BUN/CREATININE RATIO 26 (6-25); CALCIUM 10.2 mg/dL (8.4-10.2); CARBON DIOXIDE 25 mmol/L (22-29); CHLORIDE 99 mmol/L (98-107); CREATININE, SERUM 0.66 mg/dL (0.57-1.11); EST GLOMERULAR FILTRATION RATE > 60 ML/MIN (60-); GLUCOSE 260 mg/dL (74-118); POTASSIUM 3.9 mmol/L (3.5-5.1); SODIUM 135 mmol/L (136-145)
[2018-12-26 15:21] LABS: EPITHELIAL CELLS,URINE FEW /LPF
[2018-12-26] MEDS ORDERED: SODIUM CHLORIDE 0.9% 50ML 50 ML ONE (17:38)
[2018-12-26] MEDS ORDERED: IOPAMIDOL 370 MG/ML 200 ML INFUS..BTL INJ ONE (17:38)
--- NOTE | 2018-12-26 17:50 | Diagnostic Imaging Report ---
EXAM: CT of the abdomen and pelvis WITH contrast HISTORY: right abd pain, COMPARISON: None. TECHNIQUE: The abdomen and pelvis were scanned utilizing a multidetector helical scanner. Coronal and sagittal reformats are provided. PROTOCOL: Routine IV CONTRAST: 100 cc of Isovue-370. ORAL CONTRAST: None, which limits sensitivity and specificity of the exam. RADIATION DOSE: Total DLP: 413.32 mGy*cm Estimated effective dose: (DLP x 0.015 x size factor) Dose modulation, iterative reconstruction, and/or weight based adjustment of the mA/kV was utilized to reduce the radiation dose to as low as reasonably achievable. COMPLICATIONS: None FINDINGS: LOWER THORAX: Minimal lingular atelectasis versus scarring. HEPATOBILIARY: Diffusely decreased attenuation. No mass. No biliary dilation. Metallic clips in the right upper quadrant of the abdomen are compatible with prior cholecystectomy. SPLEEN: No splenomegaly. PANCREAS: No focal masses or ductal dilatation. ADRENALS: No discrete adrenal nodule. KIDNEYS/URETERS: No hydronephrosis, stones, or definite solid mass lesions. Stable 2 cm hypodensity within the left kidney, most likely a cyst. PELVIC ORGANS/BLADDER: The visualized pelvic organs appear unremarkable. GI TRACT: No dilation or wall thickening identified. The appendix is normal. PERITONEUM / RETROPERITONEUM: No free air or fluid. LYMPH NODES: No pathologically enlarged lymph node. VESSELS: Diffuse scattered atherosclerotic vascular calcifications. BONES: No aggressive osseous lesion or acute fracture. SOFT TISSUES: Unremarkable. IMPRESSION: 1. No acute CT abnormality. 2. Hepatic steatosis. 3. Status post cholecystectomy. Signed by: Dr. Ever Chery D.O., M.M.M. on 12/26/2018 5:46 PM
[2019-01-02] MEDS ORDERED: INVOKANA PO (10:29)
[2019-01-02] MEDS ORDERED: LISINOPRIL10 MG PO (10:30)
[2019-01-02] MEDS ORDERED: LEVOTHYROXINE50 MCG PO (10:30)
[2019-01-02] MEDS ORDERED: METFORMIN HCL500 MG PO (10:30)
[2019-01-02] MEDS ORDERED: OMEPRAZOLE40 MG PO (10:30)
[2019-01-02] MEDS ORDERED: LIRAGLUTIDE SC (10:31)
[2019-01-02] MEDS ORDERED: INSULIN DEGLUDEC SC (10:31)
[2019-01-02] MEDS ORDERED: HUMALOG100 UNIT/1 SC (10:31)
== END 2018-12-26 18:44 | disposition home or self-care (01) ==
LOC: ER 12:48
DX: R10.31 Right lower quadrant pain (principal); R10.11 Right upper quadrant pain; R10.33 Periumbilical pain; R11.0 Nausea; E11.65 Type 2 diabetes mellitus with hyperglycemia; E78.5 Hyperlipidemia, unspecified; F41.9 Anxiety disorder, unspecified
CPT/HCPCS: 36415; 74177; 80053; 81001; 85025; 99283; Q9967

== ENCOUNTER → 2019-01-03 | Day surgery (SDC) | payer BC ==
[~2019-01-03] MED LIST changes: +FENTANYL CITRATE/PF 100MCG/2 ML INJ ONE; +HUMALOG100 UNIT/1 SC; +HYOSCYAMINE SULFATE 0.5 MG/ML INJ ONE; +INSULIN DEGLUDEC SC; +INSULIN REGULAR, HUMAN 100 UNIT/1 ML 3ML VIAL ONE; +LEVOTHYROXINE50 MCG PO; +LIDOCAINE HCL 2% LOCAL INJ 5 ML SDV VIAL INJ ONE; +LIRAGLUTIDE SC; +MIDAZOLAM HCL 2 MG/2 ML VIAL ONE; +OMEPRAZOLE40 MG PO; +PROPOFOL IV EMULSION 10 MG/ML 50 ML VIAL ONE
[2019-01-03 12:37] VITALS: BP 141/88
--- NOTE | 2019-01-03 18:11 | Operative Report ---
DATE OF PROCEDURE: 01/03/2019 SURGEON: Regino Lopez MD PROCEDURE: Colonoscopy with biopsies INDICATIONS FOR COLONOSCOPY: Colorectal cancer screening, intermittent soft stools. MEDICATIONS: The patient was done under MAC, please see anesthesiologist's note. PROCEDURE IN DETAIL: With the patient in left lateral decubitus position, flexible fiberoptic Olympus colonoscope was inserted into the rectum with ease and advanced all the way to the cecum. Mucosa overlying the cecum appeared to be within normal limits. The ileocecal valve was intubated and the scope was advanced into the terminal ileum. Biopsies were obtained. The scope was then withdrawn back into the colon. It was then withdrawn slowly and approximately 2 cm sessile polypoid lesion soft ? lipoma, multiple biopsies were obtained. The rest of the ascending and the transverse appeared to be within normal limits. There were some patchy mild inflammatory changes noted in the left colon. Multiple random biopsies were obtained. The scope was then retroflexed into the distal rectum and small internal hemorrhoids were noted, none of which was actively bleeding. The scope was then straightened out, it was subsequently withdrawn and the patient tolerated procedure well. IMPRESSION: 1. Rule out lipoma in ascending colon. 2. Mild patchy left-sided colitis. 3. Internal hemorrhoids, none actively bleeding. PLAN: Follow up histology. Initiate VSL #3 one p.o. daily. Regino Lopez MD [facility] [place]/[facility] /[id number] cc: Willem Wheatley MD
== END | disposition home or self-care (01) ==
LOC: OR 09:55
PROVIDERS: ATTEND Internal Medicine Gastroenterology
DX: K51.50 Left sided colitis without complications (principal); K63.5 Polyp of colon; K64.8 Other hemorrhoids; K21.9 Gastro-esophageal reflux disease without esophagitis; K76.0 Fatty (change of) liver, not elsewhere classified; E11.9 Type 2 diabetes mellitus without complications; J45.909 Unspecified asthma, uncomplicated; I10 Essential (primary) hypertension; Z91.018 Allergy to other foods; Z01.810 Encounter for preprocedural cardiovascular examination; Z79.4 Long term (current) use of insulin
CPT/HCPCS: 36415; 45380; 82948; 93005; J1980; J2001; J2250; J2704; 45378

== ENCOUNTER → 2019-05-20 | Day surgery (SDC) | payer BC ==
[2019-05-15 09:59] LABS: ANION GAP 11.7 mmol/L (8-16); BLOOD UREA NITROGEN 20 mg/dL (7-26); BUN/CREATININE RATIO 26 (6-25); CARBON DIOXIDE 29 mmol/L (22-29); CHLORIDE 97 mmol/L (98-107); CREATININE, SERUM 0.78 mg/dL (0.57-1.11); EST GLOMERULAR FILTRATION RATE > 60 ML/MIN (60-); GLUCOSE 380 mg/dL (74-118); POTASSIUM 4.7 mmol/L (3.5-5.1); SODIUM 133 mmol/L (136-145)
[~2019-05-20] MED LIST changes: +ACETAMINOPHEN 1000 MG/100 ML IV ONE; +BUPIVACAINE HCL 0.5% INJ 30 ML VIAL INJ ONE; +CEFAZOLIN SOD 1 GM/NS 50ML 50 ML IV ONE; +DEXAMETHASONE SOD PHOS INJ 4 MG/ML VIAL ONE; -HYOSCYAMINE SULFATE 0.5 MG/ML INJ ONE; +KETOROLAC TROMETHAMINE 30 MG/ML VIAL ONE; +ONDANSETRON HCL INJ 2MG/ML 2ML 2 MG/ML VIAL ONE; +PROPOFOL IV EMULSION 10 MG/ML 20 ML VIAL ONE; -PROPOFOL IV EMULSION 10 MG/ML 50 ML VIAL ONE; +SEVOFLURANE INHAL SOLN 250 ML PEN BTL ONE
--- NOTE | 2019-05-20 07:45 | Operative Report ---
DATE OF PROCEDURE: 05/20/2019 SURGEON: Fabiano Baptiste MD PLASTER FOREMAN: Audi Castro, certified PA. PREOPERATIVE DIAGNOSIS: Bilateral 3rd trigger finger. POSTOPERATIVE DIAGNOSIS: Bilateral 3rd trigger finger. PROCEDURE: Release of bilateral 3rd trigger finger. INDICATIONS: The patient is a 58-year-old lady who has clinic signs and symptoms consistent with bilateral 3rd trigger finger. She has failed conservative management and would like to proceed with definitive intervention. The risks and benefits of trigger finger release have been explained. She states she understands and wishes to proceed. PROCEDURE IN DETAIL: The patient was brought to the operating room and placed under general anesthetic. Both upper extremities were prepped and draped in a sterile manner. A preoperative time-out was performed. Initial attention was directed towards the left upper extremity. The extremity was exsanguinated and a proximal tourniquet was briefly inflated to 250 mmHg. An incision was made in line with the 3rd finger over the distal palmar crease. The A1 nish was carefully exposed. This was released with a combination of a 15 blade surgical knife and tenotomy scissors. The tendons were retracted from the wound and noted to have full excursion without further stenosing tenosynovitis. The wound was closed with two interrupted nylon stitches. A 2 mL of 0.5% Marcaine without epinephrine were used to infiltrate the incision. A sterile bandage was applied and the tourniquet was deflated. The same procedure was then performed on the right side. The patient was extubated and transported to the recovery room in stable condition. There was no blood loss and all needle and sponge counts were correct. Fabiano Baptiste MD DR/LOUANN /[id number]
[2019-05-20 08:30] VITALS: BP 134/80
== END | disposition home or self-care (01) ==
LOC: OR 05:54
PROVIDERS: ATTEND Specialist
DX: M65.332 Trigger finger, left middle finger (principal); M65.331 Trigger finger, right middle finger; K21.9 Gastro-esophageal reflux disease without esophagitis; E11.9 Type 2 diabetes mellitus without complications; F41.9 Anxiety disorder, unspecified; Z01.810 Encounter for preprocedural cardiovascular examination; Z01.812 Encounter for preprocedural laboratory examination; Z79.4 Long term (current) use of insulin; Z79.82 Long term (current) use of aspirin
CPT/HCPCS: 26055 ×2; 36415 ×2; 80048; 82948; 93005; J0131; J0690; J1100; J1885; J2001; J2250; J2405; J2704; J3010; J1817

== ENCOUNTER → 2023-12-11 | Day surgery (SDC) | payer BC ==
[2023-12-07 13:45] LABS: BASOPHILS % 0.3 % (0.0-1.0); EOSINOPHILS # (AUTO) 0.3 (0.0-0.4); EOSINOPHILS % 2.7 % (0.0-6.0); HEMOGLOBIN 15.1 g/dL (12.0-16.0); LYMPHOCYTES % 21.4 % (18.0-39.1); MEAN CORPUSCULAR HEMOGLOBIN 29.2 pg (28-32); MEAN CORPUSCULAR HGB CONC 33.6 g/dL (31-35); MEAN CORPUSCULAR VOLUME 86.9 fL (81-99); MONOCYTES # (AUTO) 0.6 (0.2-0.8); NEUTROPHILS # (AUTO) 6.4 (2.1-6.9); NEUTROPHILS % 69.3 % (38.7-80.0); PLATELET COUNT 295 x10e3/uL (140-360); RED BLOOD COUNT 5.18 x10e6/uL (3.6-5.1); WHITE BLOOD COUNT 9.28 x10e3/uL (4.8-10.8)
[2023-12-07 13:59] LABS: ANION GAP 14.7 mmol/L (8-16); CALCIUM 9.9 mg/dL (8.4-10.2); CREATININE, SERUM 0.79 mg/dL (0.57-1.11); POTASSIUM 3.7 mmol/L (3.5-5.1)
[~2023-12-11] MED LIST changes: -ACETAMINOPHEN 1000 MG/100 ML IV ONE; -CEFAZOLIN SOD 1 GM/NS 50ML 50 ML IV ONE; +CLOPIDOGREL75 MG PO; +DEXAMETHASONE SOD PHOS INJ 4 MG/ML SDV ONE; -DEXAMETHASONE SOD PHOS INJ 4 MG/ML VIAL ONE; +DEXMEDETOMIDINE HCL 200 MCG/2 ML VIAL ONE; +FAMOTIDINE 20 MG/2 ML VIAL IV ONE; +FARXIGA10 MG PO; -INSULIN REGULAR, HUMAN 100 UNIT/1 ML 3ML VIAL ONE; +ISOSORBIDE MONO30 MG PO; -KETOROLAC TROMETHAMINE 30 MG/ML VIAL ONE; +LASIX20 MG PO; +LIPITOR20 MG PO; +METOPROLOL TART25 MG PO; +MOUNJARO10 MG/0.5 SQ; -SEVOFLURANE INHAL SOLN 250 ML PEN BTL ONE; +SODIUM CHLORIDE 0.9% INJ 100 ML BAG ONE; +TRESIBA100 UNIT/1 SQ; +TRICOR145 MG PO; +ZETIA10 MG PO
[2023-12-11] MEDS: LACTATED RINGER'S 1,000 ML ONE (06:04)
[2023-12-11 07:29] VITALS: TEMP 98
[2023-12-11 08:35] VITALS: BP 140/77; PULSE 66; RESP 16; O2SAT 96
== END | disposition home or self-care (01) ==
LOC: OR 05:24 → EDSTATUS 07:00
PROVIDERS: ATTEND Specialist
DX: M65.311 Trigger thumb, right thumb (principal); I25.810 Atherosclerosis of coronary artery bypass graft(s) without angina pectoris; I25.2 Old myocardial infarction; E78.5 Hyperlipidemia, unspecified; R06.02 Shortness of breath; E11.9 Type 2 diabetes mellitus without complications; E03.9 Hypothyroidism, unspecified; K21.9 Gastro-esophageal reflux disease without esophagitis; F41.9 Anxiety disorder, unspecified; Z71.82 Exercise counseling; Z71.3 Dietary counseling and surveillance; Z01.810 Encounter for preprocedural cardiovascular examination; Z01.812 Encounter for preprocedural laboratory examination; Z01.818 Encounter for other preprocedural examination; Z79.82 Long term (current) use of aspirin; Z79.02 Long term (current) use of antithrombotics/antiplatelets; Z79.4 Long term (current) use of insulin; Z79.85 Long-term (current) use of injectable non-insulin antidiabetic drugs; Z95.5 Presence of coronary angioplasty implant and graft; Z95.1 Presence of aortocoronary bypass graft
CPT/HCPCS: 26055; 36415 ×2; 71046; 80048; 82948; 85025; 93005; J0690; J1100; J2001; J2250; J2405; J2704; J3010; J7050; J7121